=== PATIENT | male | born 1970 | race Caucasian/White ===

== ENCOUNTER → 2016-06-28 | Outpatient (CLI) | payer MEDICARE ==
[~2016-06-28] MED LIST: ASPI-621 PO; ATOR80TA75 PO; CARV3.122 PO; LISI-167 PO; NICO1PAT10 TD; TICA90TA PO; TRAZ100T15 PO
[2016-06-28 11:11] LABS: ASPARTATE AMINO TRANSFERASE 13 U/L (15-37)
== END | disposition home or self-care (01) ==
LOC: CFH 08:30
PROVIDERS: ATTEND Internal Medicine Cardiovascular Disease
DX: E78.2 Mixed hyperlipidemia (principal); I10 Essential (primary) hypertension
CPT/HCPCS: 36415; 80061; 80076

== ENCOUNTER → 2016-11-28 | Outpatient (CLI) | payer MEDICARE ==
[~2016-11-28] MED LIST changes: +ATOR-2 PO; -ATOR80TA75 PO; +NICO-485 TD; -NICO1PAT10 TD; +REGADENOSON 0.4 MG/5 ML SYRINGE ONE
== END | disposition home or self-care (01) ==
LOC: CFH 07:42
PROVIDERS: ATTEND Physician Assistant
DX: I25.10 Atherosclerotic heart disease of native coronary artery without angina pectoris (principal); I25.2 Old myocardial infarction
CPT/HCPCS: 78452; 93017; A9502; J2785

== ENCOUNTER 2019-07-08 10:05 | Emergency (ER) | payer MEDICARE ==
[~2019-07-08] VITALS: Ht 177.8 cm; Wt 86.1 kg
[~2019-07-08 10:05] MED LIST changes: -ASPI-621 PO; +ASPI81TA45 PO; -REGADENOSON 0.4 MG/5 ML SYRINGE ONE; +TRAZ-175 PO; -TRAZ100T15 PO
[2019-07-08 10:07] VITALS: BP 156/112
== END 2019-07-08 10:40 | disposition home or self-care (01) ==
LOC: ED 10:20
DX: M54.5 Low back pain (principal); F41.1 Generalized anxiety disorder; I25.2 Old myocardial infarction; I10 Essential (primary) hypertension
CPT/HCPCS: 99283

== ENCOUNTER 2019-07-17 06:29 | Emergency (ER) | payer MEDICARE ==
[~2019-07-17] VITALS: Ht 177.8 cm; Wt 85.6 kg
--- NOTE | 2019-07-17 06:45 | NUR ---
PT REPORTS TX X2 YEARS AGO WITH STEANT PLACEMENT, HAVING SIMILAR SYMPTOMS TODAY AND OFF AND ON FOR THE LAST MONTH, N/V, CP RADIATING TO MID BACK, DIAPHORESIS DENIES ANY OTHER C/O AT THIS TIME. PT REPORTS INTERMITTENT ABDOMINAL PAIN X1 MONTH. HX OF GERD. EKG DONE ON TRIAGE, PT CONNECTED TO MONITORING, CALL LIGHT WITHIN REACH, ALL SAFETY MEASURES IN PLACE.
--- NOTE | 2019-07-17 06:58 | NUR ---
RECEIVED REPORT FROM LYLE HENDRICKS. PROVIDER AT BEDSIDE EXAMINING PT AND DISCUSSING WITH HIM PLAN OF CARE.
[2019-07-17] MEDS ORDERED: MAALOX/HYOSCYAMINE/LIDOCAINE 45 ML BTL PO ONE (07:00)
[2019-07-17] MEDS ORDERED: MAALOX/HYOSCYAMINE/LIDOCAINE 45 ML BTL ONE (07:09)
[2019-07-17 07:25] LABS: BASOPHILS # (AUTO) 0.06 x10^3/uL (0-0.1); BASOPHILS % (AUTO) 1 % (0-1); EOSINOPHILS # (AUTO) 0.55 x10^3/uL (0-0.4); EOSINOPHILS % (AUTO) 5 % (1-7); LYMPHOCYTES # (AUTO) 2.03 x10^3/uL (1-3.4); LYMPHOCYTES % (AUTO) 17 % (22-44); MD NO; MEAN CORPUSCULAR HEMOGLOBIN 29.6 pg (27.5-34.5); MEAN CORPUSCULAR HGB CONC 32.8 g/dL (33.2-36.2); MEAN CORPUSCULAR VOLUME 90.2 fL (81-97); MEAN PLATELET VOLUME 8.9 fL (7.4-10.4); MONOCYTES # (AUTO) 0.55 x10^3/uL (0.2-0.8); MONOCYTES % (AUTO) 4 % (2-9); NEUTROPHILS # (AUTO) 9.16 x10^3/uL (1.8-6.8); NEUTROPHILS % (AUTO) 74 % (42-75); PLATELET COUNT 307 x10^3/uL (130-400); RED BLOOD COUNT 5.56 x10^6/uL (4.38-5.82); RED CELL DISTRIBUTION WIDTH 14.8 % (9.4-14.8)
[2019-07-17] MEDS ORDERED: ASPIRIN 325 MG TABLET ONE (07:29)
[2019-07-17] MEDS ORDERED: ASPIRIN 325 MG TABLET PO ONE (07:30)
[2019-07-17] MEDS ORDERED: LISINOPRIL 10 MG TABLET PO ONE (07:30)
[2019-07-17] MEDS ORDERED: LISINOPRIL 10 MG TABLET ONE (07:30)
[2019-07-17 07:36] LABS: ALANINE AMINOTRANSFERASE 22 U/L (12-78); ALBUMIN 3.4 g/dL (3.4-5.0); ANION GAP 4 mmol/L (5-15); CALCIUM 8.5 mg/dL (8.5-10.1); CHLORIDE 108 mmol/L (98-107)
[2019-07-17 07:40] LABS: BILIRUBIN,TOTAL 0.3 mg/dL (0.2-1.0); CREATININE 0.98 mg/dL (0.7-1.3)
[2019-07-17 07:41] LABS: ALKALINE PHOSPHATASE 72 U/L (45-117); TOTAL PROTEIN 7.1 g/dL (6.4-8.2); TROPONIN I < 0.015 ng/mL (0.000-0.045)
--- NOTE | 2019-07-17 07:43 | NUR ---
MEDICATED NOTED ON MAR, CONTINUE TO MONITOR
--- NOTE | 2019-07-17 08:14 | NUR ---
PAIN IMPROVED SINCE MEDICATED. TOLD PROVIDER THAT WHEN HE WOKE UP TODAY HE HAD AN EXPERIENCE THAT HE WAS TWO PEOPLE INSTEAD OF ONE AND THAT THE TWO PEOPLE WERE HAVING SEX. PT TOLD HER HE IS NOT CRAZY BUT TALKED ABOUT [employer] AND THAT SOMETIMES HE IS IN HIS DAD'S BODY OR SOMETHING TO THAT EFFECT
--- NOTE | 2019-07-17 08:50 | NUR ---
TASK RN: PT RECLINING ON [place] WATCHING TV. NAD NOTED. CALL LIGHT W/I REACH
[2019-07-17 09:12] VITALS: BP 156/93
--- NOTE | 2019-07-17 09:12 | NUR ---
OUT OF BED TO BATHROOM. PT THEN GIVEN DISCHARGE INSTRUCTIONS. AMBULATED TO DISCHARGE WINDOW, STEADY GAIT.
== END 2019-07-17 09:23 | disposition home or self-care (01) ==
LOC: ED 06:59
DX: I10 Essential (primary) hypertension (principal); D72.829 Elevated white blood cell count, unspecified; R07.9 Chest pain, unspecified; R61 Generalized hyperhidrosis; I25.10 Atherosclerotic heart disease of native coronary artery without angina pectoris; I25.2 Old myocardial infarction; F17.290 Nicotine dependence, other tobacco product, uncomplicated
CPT/HCPCS: 36415; 71045; 80053; 83690; 84484; 85025; 93005; 99285

== ENCOUNTER 2020-07-16 11:21 | Emergency (ER) | payer MEDICARE ==
[~2020-07-16] VITALS: Ht 177.8 cm; Wt 100.2 kg
--- NOTE | 2020-07-16 11:53 | NUR ---
PT AMBULATORY TO ROOM, PT UNABLE TO CHANGE INTO A GOWN D/T FOREARM PAIN. CALL LIGHT WITHIN REACH. NO NEEDS AT THIS TIME
[2020-07-16] MEDS ORDERED: HYDROcodone/APAP 5/325 TABLET ONE (12:08)
[2020-07-16] MEDS ORDERED: HYDROcodone/APAP 5/325 TABLET PO ONE (12:30)
--- NOTE | 2020-07-16 12:33 | NUR ---
PT BACK FROM XRAY
[2020-07-16] MEDS ORDERED: ONDANSETRON ODT 4 MG ONE (12:40)
[2020-07-16 12:44] VITALS: BP 136/93
--- NOTE | 2020-07-16 12:45 | NUR ---
PT SITTING ON GURNEY [place]MLY WATCHING TV. NADN/VSS. CALL LIGHT WITHIN REACH. NO NEEDS AT THIS TIME
[2020-07-16] MEDS ORDERED: KETOROLAC 30 MG/1 ML ONE (13:26)
[2020-07-16] MEDS ORDERED: KETOROLAC 30 MG/1 ML IM ONE (13:30)
--- NOTE | 2020-07-16 13:46 | NUR ---
Patient given discharge instructions and they have confirmed that they understand the instructions. Patient ambulatory with steady gait.
== END 2020-07-16 13:47 | disposition home or self-care (01) ==
LOC: ED 12:05
DX: S52.121A Displaced fracture of head of right radius, initial encounter for closed fracture (principal); M25.421 Effusion, right elbow; F17.210 Nicotine dependence, cigarettes, uncomplicated; I25.2 Old myocardial infarction; I25.10 Atherosclerotic heart disease of native coronary artery without angina pectoris; W01.0XXA Fall on same level from slipping, tripping and stumbling without subsequent striking against object, initial encounter; Y93.79 Activity, other specified sports and athletics; Y92.410 Unspecified street and highway as the place of occurrence of the external cause; Y99.8 Other external cause status
CPT/HCPCS: 29105; 73080; 73090; 73110; 96372; 99284; 99406; J1885